=== PATIENT | female | born 1995 | race Caucasian/White ===

== ENCOUNTER 2020-10-18 23:12 | Emergency (ER) | payer OTHER ==
[2020-10-19 00:35] LABS: BILIRUBIN NEGATIVE (NEGATIVE); BLOOD 2+ Ery/uL (NEGATIVE); CLARITY CLEAR (CLEAR); COLOR YELLOW (YELLOW); GLUCOSE (U) NORMAL (NORMAL); LEUKOCYTES NEGATIVE Leu/uL (NEGATIVE); NITRITE NEGATIVE (NEGATIVE); PROTEIN NEGATIVE (NEGATIVE); SPECIFIC GRAVITY >=1.030 (1.001-1.030); UROBILINOGEN 0.2 mg/dL (0.2-1.0)
[2020-10-19 00:49] LABS: URINARY RBC RARE
[2020-10-21 19:10] LABS: CHLAMYDIA TRACHOMATIS, NAA Negative (Negative); NEISSERIA GONORRHOEAE, NAA Negative (Negative)
== END 2020-10-19 03:40 | disposition home or self-care (01) ==
LOC: FER 23:12
PROVIDERS: Emergency Medicine Emergency Medical Services
DX: O20.0 Threatened abortion (principal); O99.331 Smoking (tobacco) complicating pregnancy, first trimester; F17.290 Nicotine dependence, other tobacco product, uncomplicated; Z3A.01 Less than 8 weeks gestation of pregnancy
CPT/HCPCS: 36415; 81001; 84702; 86900; 86901; 87210; 87491; 87591

== ENCOUNTER 2021-05-17 03:38 | Emergency (ER) | payer OTHER ==
[~2021-05-17] VITALS: Ht 152.4 cm; Wt 56.7 kg
[2021-05-17 04:56] LABS: BILIRUBIN NEGATIVE (NEGATIVE); BLOOD NEGATIVE Ery/uL (NEGATIVE); CLARITY CLEAR (CLEAR); COLOR YELLOW (YELLOW); GLUCOSE (U) NORMAL (NORMAL); LEUKOCYTES NEGATIVE Leu/uL (NEGATIVE); NITRITE NEGATIVE (NEGATIVE); PROTEIN NEGATIVE (NEGATIVE); SPECIFIC GRAVITY 1.025 (1.001-1.030); UROBILINOGEN 0.2 mg/dL (0.2-1.0)
[2021-05-17 04:59] LABS: BASOPHIL 0.2 % (0-2); EOSINOPHIL 0.2 % (0-5); HCT 42.1 % (37.0-47.0); HGB 14.3 g/dl (12.5-16.0); LYMPHOCYTE 9.7 % (15-48); MCH 30.5 pg (25.0-31.0); MCV 89.8 fL (78.0-100.0); MONOCYTE 5.4 % (0-12); MPV 10.5 fL (6.0-9.5); NEUTROPHIL 83.9 % (41-80); NRBC 0; PLT 249 K/uL (150-400); RBC 4.69 M/uL (4.20-5.40); RDW 12.2 % (11.5-14.0); WBC 20.2 K/uL (4.0-10.5)
[2021-05-17 05:17] LABS: ALBUMIN 3.9 g/dL (3.4-5.0); BILIRUBIN - TOTAL 0.8 mg/dL (0.2-1.0); BUN/CREAT RATIO (CALC) 10.5 RATIO; CREATININE 0.95 mg/dL (0.51-0.95); GLOBULIN (CALCULATION) 3.6 g/dL; POTASSIUM 3.2 mmol/L (3.5-5.1); TOTAL PROTEIN 7.5 g/dL (6.4-8.2)
[2021-05-17 06:23] LABS: CORONAVIRUS 2019 SARS-COV-2 NEGATIVE (NEGATIVE); INFLUENZA A NAA NEGATIVE (NEGATIVE)
[2021-05-17] MEDS ORDERED: VIBRAMYCIN100 MG PO (12:54)
[2021-05-17] MEDS ORDERED: KETOROLAC TROME10 MG PO (12:54)
--- NOTE | 2021-05-17 13:59 | NUR ---
05/18 Ms Gaston lives at home with her boyfriend. The couple are supported by the 's income. - Ms. Gaston will be discharged home and returning for outpatient Rocephin IV antibiotic treatment. She has transportation.
[2021-05-19 00:06] LABS: CHLAMYDIA TRACHOMATIS, NAA Negative (Negative); NEISSERIA GONORRHOEAE, NAA Negative (Negative)
== END 2021-05-17 14:08 | disposition home or self-care (01) ==
LOC: FER 03:38 → FOFB 03:38 → FER 14:08
PROVIDERS: Emergency Medicine Emergency Medical Services
DX: N83.202 Unspecified ovarian cyst, left side (principal); N70.91 Salpingitis, unspecified; Z20.822 Contact with and (suspected) exposure to COVID-19
CPT/HCPCS: 36415; 76830; 80053; 80170; 81003; 84702; 85025; 86140; 87040; 87210; 87491; 87591; J0290; J1170; J1580; J2405; J2543; J7030; Q9967; U0002